=== PATIENT | male | born 1995 | race African-American/Black ===

== ENCOUNTER 2021-03-22 14:39 | Emergency (ER) | payer OTHER ==
[~2021-03-22] VITALS: Ht 177.8 cm; Wt 116.8 kg
[2021-03-22] MEDS ORDERED: ACET-683 PO (17:14)
[2021-03-22 17:20] VITALS: BP 132/91
== END 2021-03-22 17:22 | disposition home or self-care (01) ==
LOC: M ED 14:39
DX: M54.40 Lumbago with sciatica, unspecified side (principal)

== ENCOUNTER → 2021-03-23 | Outpatient (CLI) | payer OTHER ==
[~2021-03-23] MED LIST: ACET-683 PO
--- NOTE | 2021-03-23 18:45 | REP ---
INDICATION: PAIN LEFT LOWER BACK. COMPARISON: None. TECHNIQUE: Five views FINDINGS: Five views of the lumbosacral spine show no acute fracture, dislocation or subluxation. The intervertebral disc spaces are symmetric and well maintained. There is no spondylolysis or spondylolisthesis. The pedicles are intact bilaterally and there is no destructive osseous lesion. IMPRESSION: Unremarkable lumbosacral spine series. <Electronically signed by Curtis Coelho > 03/23/21 [id number]
== END ==
LOC: M RAD 18:19
PROVIDERS: ATTEND Physician Assistant
DX: M54.5 Low back pain (principal)

== ENCOUNTER → 2021-10-21 | Outpatient (CLI) | payer OTHER ==
[2021-10-21 15:56] LABS: COLLAGEN EPINEPHRINE 179 SECONDS (74-162)
[2021-10-21 17:23] LABS: COLLAGEN ADP 112 SECONDS (56-103)
== END ==
LOC: M PLALAB 13:31
PROVIDERS: ATTEND Physical Medicine & Rehabilitation
DX: M51.37 Other intervertebral disc degeneration, lumbosacral region (principal)

== ENCOUNTER → 2021-10-26 | Outpatient (CLI) | payer OTHER ==
[2021-10-26 06:58] LABS: COLLAGEN EPINEPHRINE 145 SECONDS (74-162)
== END ==
LOC: M LAB 06:15
PROVIDERS: ATTEND Physical Medicine & Rehabilitation
DX: Z01.818 Encounter for other preprocedural examination (principal)

== ENCOUNTER 2022-11-02 12:33 | Observation (INO) | payer OTHER ==
[~2022-11-02] VITALS: Ht 180.3 cm; Wt 113.4 kg
[~2022-11-02 12:33] MED LIST changes: +HEPARIN SOD (PORCINE) 5000UNITS/ML 1ML VIAL/SYRINGE SQ ONE; +HYDROMORPHONE HCL 0.5 MG/ 0.5 ML SYRINGE IV PRN; +LR 1,000 ML IV SCH; +MEPERIDINE 25 MG/ML 1ML VIAL IV PRN; +ONDANSETRON 4MG 2ML VIAL IV PRN; +ceFAZolin SOD 2 GM in IV 1 EA IV ONE; +fentaNYL 100 MCG/2 ML INJECTION IV PRN; +oxyCODONE 5MG TAB PO PRN
[2022-11-02] MEDS ORDERED: LIDOCAINE 1% SDV 5ML VIAL SC PRN (12:45)
[2022-11-02] MEDS ORDERED: LR 1,000 ML IV SCH ×2 (12:45→17:40)
[2022-11-02] MEDS ORDERED: LIDOCAINE 2% 100MG/5ML SDV (FOR ANES.) As Ordered ONE (14:12)
[2022-11-02] MEDS ORDERED: propofoL 200 MG/20 ML VIAL As Ordered ONE (14:12)
[2022-11-02] MEDS ORDERED: ROCURONIUM BROMIDE 50MG/5ML VIAL As Ordered ONE ×2 (14:12→15:15)
[2022-11-02] MEDS ORDERED: SUGAMMADEX SODIUM 500 MG/5 ML VIAL (BRIDION) As Ordered ONE (14:12)
[2022-11-02] MEDS ORDERED: ONDANSETRON 4MG 2ML VIAL As Ordered ONE (14:12)
[2022-11-02] MEDS ORDERED: fentaNYL 250 MCG/5 ML INJECTION As Ordered ONE (14:17)
[2022-11-02] MEDS ORDERED: MIDAZOLAM INJ 2MG/2ML VIAL As Ordered ONE (14:17)
[2022-11-02] MEDS ORDERED: BUPIVACAINE HCL 0.25% 30ML VIAL As Ordered ONE (14:46)
[2022-11-02] MEDS ORDERED: BUPIVACAINE LIPOSOME/PF 1.3% 20ML VIAL (13.3MG/ML)(EXPAREL) As Ordered ONE (14:46)
[2022-11-02] MEDS ORDERED: GENTAMICIN SULF 80MG/2ML VIAL As Ordered ONE (14:46)
[2022-11-02] MEDS ORDERED: ACETAMINOPHEN 1000MG 100ML IV BAG As Ordered ONE (15:21)
[2022-11-02] MEDS ORDERED: KETOROLAC 60MG 2ML VIAL As Ordered ONE (15:37)
[2022-11-02] MEDS ORDERED: METOCLOPRAMIDE INJ 10MG/2ML VIAL As Ordered ONE (15:37)
[2022-11-02] MEDS ORDERED: HYDROmorphone HCL 2MG/ML 1ML VIAL As Ordered ONE (15:37)
[2022-11-02] MEDS ORDERED: ONDANSETRON 4MG 2ML VIAL IV PRN ×2 (17:40→18:05)
[2022-11-02] MEDS ORDERED: fentaNYL 100 MCG/2 ML INJECTION IV PRN (17:40)
[2022-11-02] MEDS ORDERED: oxyCODONE 5MG TAB PO PRN (17:40)
[2022-11-02] MEDS ORDERED: ACETAMINOPHEN TAB 650MG DOSE (2X325MG) PO PRN (18:05)
[2022-11-02] MEDS ORDERED: PERCOCET 5MG/325MG TAB PO PRN (18:05)
[2022-11-02] MEDS: LR 1,000 ML IV SCH (20:11)
[2022-11-02 20:14] VITALS: BP 127/84
[2022-11-02 20:45] VITALS: BP 129/83
[2022-11-02 20:46] VITALS: BP 123/62
[2022-11-02 21:32] VITALS: BP 132/81
[2022-11-02] MEDS: ceFAZolin SOD 1 GM in D5W MINI-BAG PLUS 50 ML IV SCH (22:44)
[2022-11-03 00:05] VITALS: BP 146/63
[2022-11-03 01:19] VITALS: BP 122/60
[2022-11-03] MEDS: traMADol 50 MG TAB PO PRN ×2 (05:02→09:21)
[2022-11-03 05:03] VITALS: BP 123/59
[2022-11-03] MEDS: ceFAZolin SOD 1 GM in D5W MINI-BAG PLUS 50 ML IV SCH (06:34)
[2022-11-03] MEDS: LR 1,000 ML IV SCH (07:25)
[2022-11-03 10:00] VITALS: BP 122/73
[2022-11-03] MEDS ORDERED: TRAM50TA2 PO (13:29)
== END 2022-11-03 16:05 | disposition home or self-care (01) ==
LOC: M SDC 12:33 → M ED INP 12:34 → M MS5PR 20:05
PROVIDERS: ADMIT Plastic Surgery Surgery of the Hand; ATTEND Plastic Surgery Surgery of the Hand
DX: M54.06 Panniculitis affecting regions of neck and back, lumbar region (principal); D75.A Glucose-6-phosphate dehydrogenase (G6PD) deficiency without anemia; R06.83 Snoring; Z88.7 Allergy status to serum and vaccine
CPT/HCPCS: 15830; 87635; 88300; 96374; 96375; C9290; J0131; J0690; J1100; J1170; J1580; J1885; J2250; J2405; J2765; J3010; S0020